=== PATIENT | male | born 1995 | race African-American/Black ===

== ENCOUNTER → 2017-07-23 | Outpatient (CLI) | payer OTHER | LOC: COL.PUL 08:00 | DX: R06.02 Shortness of breath (principal) ==

== ENCOUNTER 2018-01-13 13:00 | Outpatient (RCR) | payer OTHER ==
[2017-10-17 15:22] VITALS: BP 118/57; PULSE 68; TEMP 97.5
[2017-12-15 13:04] VITALS: BP 128/66; PULSE 53; TEMP 97.9
[2017-12-30 10:17] VITALS: BP 126/67; PULSE 51; TEMP 97.4
[~2018-01-13] VITALS: Ht 182.9 cm; Wt 106.7 kg
[~2018-01-13 13:00] MED LIST: PROAIR HFA0.09 MG/AC IH; SINGULAIR 110 MG/TAB PO; XOLAIR150 MG SQ
[2018-01-13 13:13] VITALS: BP 124/61; PULSE 57; TEMP 97.8
== END 2018-01-15 ==
LOC: EUO
DX: J45.909 Unspecified asthma, uncomplicated (principal); Z79.899 Other long term (current) drug therapy
CPT/HCPCS: J2357

== ENCOUNTER 2018-01-27 13:40 | Outpatient (RCR) | payer OTHER ==
[~2018-01-27] VITALS: Ht 182.9 cm; Wt 112.0 kg
[2018-01-27 14:05] VITALS: BP 155/67; PULSE 73; TEMP 97.5
== END 2018-02-27 16:26 | disposition home or self-care (01) ==
LOC: EUO 13:40
DX: J45.909 Unspecified asthma, uncomplicated (principal)